=== PATIENT | female | born 1955 | race Caucasian/White ===

== ENCOUNTER → 2016-11-29 | Outpatient (CLI) | payer OTHER ==
--- NOTE | 2016-11-29 09:27 | US ---
Limited Right Upper Quadrant Ultrasound History: K 90.9. Digestive issues. Comparison: None available. Findings: The liver has normal echotexture and contour. The right lobe of the liver measures upper no rmal in size. There is no intrahepatic biliary dilatation. The common bile duct measures 4 mm and is normal. The gallbladder is normal. The right kidney measures 10.6 cm and has normal echotexture and c ontour without hydronephrosis. The visible aorta is normal caliber . The visible portions of the du creas are normal with limited visualization of the pancreatic head and tail. Impression: Normal right upper quadrant ultrasound.
== END ==
LOC: BMCIMAGING 08:01
PROVIDERS: ATTEND Allergy & Immunology Allergy
DX: K90.9 Intestinal malabsorption, unspecified (principal)

== ENCOUNTER → 2017-02-07 | Outpatient (CLI) | payer OTHER | LOC: BMCIMAGING 15:08 | PROVIDERS: ATTEND Internal Medicine | DX: S69.91XA Unspecified injury of right wrist, hand and finger(s), initial encounter (principal) ==